=== PATIENT | female | born 1980 | race Caucasian/White ===

== ENCOUNTER 2017-06-06 00:28 | Inpatient (IN) | payer OTHER ==
[~2017-06-06] VITALS: Ht 160 cm; Wt 61.5 kg
[~2017-06-06 00:28] MED LIST: DEPAKOTE ER500 MG PO; MIGRAINE RELIE1 EAC2 PO
[2017-06-06 01:04] LABS: HEMATOCRIT 40.9 % (36.0-46.0); MCH 30.7 PG (29.0-34.0); MCHC 33.7 G/DL (30.0-36.0); MCV 91.1 FL (83-99); MEAN PLAT.VOLUME 9.4 uM^3 (9.5-12.4); PLATELET COUNT 232 K/uL (156-360); RBC DIS.WIDTH-SD 43.3 % (39-53); RED BLOOD COUNT 4.49 M/uL (3.80-5.20); WHITE BLOOD COUNT 8.5 K/uL (4.1-10.2)
[2017-06-06 01:08] LABS: ADD MIUA? NO; BILIRUBIN NEGATIVE; BLOOD NEGATIVE; COLOR COLORLESS ((YELLOW)); GLUCOSE (STRIP) NEGATIVE; KETONES NEGATIVE; LEUKOCYTES NEGATIVE; NITRITE NEGATIVE; PROTEIN (STRIP) NEGATIVE; SPECIFIC GRAVITY 1.003 (1.000-1.030); UCUL ADDED? NO; UROBILINOGEN 0.2 MG/DL (0.2-1.0)
[2017-06-06 01:16] LABS: CHLORIDE 109 mEq/L (99-109); POTASSIUM 3.7 mEq/L (3.7-5.4); SODIUM 143 mEq/L (136-147)
[2017-06-06 01:18] LABS: GLUCOSE 83 mg/dL (70-99)
[2017-06-06 01:19] LABS: ADD MEDTOX COMMENT Y; AMPHETAMINE NEGATIVE (500 ng/mL); BARBITURATES NEGATIVE (200 ng/mL); BENZODIAZEPINES PRESUMPTIVE POSITIVE (150 ng/mL); COCAINE NEGATIVE (150 ng/mL); INTERNAL CONTROLS VALID? YES; METHADONE NEGATIVE (200 ng/mL); METHAMPHETAMINE NEGATIVE (500 ng/mL); OPIATES (MORPHINE) NEGATIVE (100 ng/mL); OXYCODONE NEGATIVE (100 ng/mL); PHENCYCLIDINE NEGATIVE (25 ng/mL); PROPOXYPHENE NEGATIVE (300 ng/mL); THC CANNABINOIDS NEGATIVE (50 ng/mL); TRICYCLIC ANTIDEPRESSANTS NEGATIVE (300 ng/mL)
[2017-06-06 01:19] LABS: ANION GAP 11 MEQ/L (2-14)
[2017-06-06 01:21] LABS: SERUM ETHYL ALCOHOL 217 mg/dL
[2017-06-06 01:22] LABS: GFR ESTIMATE (CALCULATED) > 59 mL/min/
[2017-06-06 01:23] LABS: UREA NITROGEN (BUN) 6 mg/dL (9-23)
[2017-06-06 01:33] LABS: QUANTITATIVE HCG < 4.0 MIU/ML
[2017-06-06 05:18] LABS: BENZODIAZEPINES, URINE SCREEN POSITIVE (200 ng/mL)
[2017-06-06 09:36] VITALS: BP 119/69
[2017-06-06 16:05] VITALS: BP 136/81
[2017-06-07 07:47] VITALS: BP 124/61
[2017-06-07 15:36] VITALS: BP 137/82
[2017-06-08 07:44] VITALS: BP 131/95
== END 2017-06-08 11:57 | disposition home or self-care (01) | DRG 883 ==
LOC: EME → EDBD 00:28 → 1WEST 06:07 → EDOF 06:07 → ENRESERV 09:26 → 1WEST 09:26
PROVIDERS: Emergency Medicine
DX: F60.3 Borderline personality disorder (principal); F43.23 Adjustment disorder with mixed anxiety and depressed mood; F10.129 Alcohol abuse with intoxication, unspecified; R45.851 Suicidal ideations; S51.812A Laceration without foreign body of left forearm, initial encounter; S50.812A Abrasion of left forearm, initial encounter; X78.1XXA Intentional self-harm by knife, initial encounter; Y92.9 Unspecified place or not applicable; F41.9 Anxiety disorder, unspecified; Z91.5 Personal history of self-harm; F17.200 Nicotine dependence, unspecified, uncomplicated
CPT/HCPCS: 80048; 81003; 84702; 84999; 85027; 90837; 97165 GO; 99281; 99284; G0480